=== PATIENT | female | born 1995 | race Caucasian/White ===

== ENCOUNTER 2018-03-11 16:16 | Emergency (ER) | payer MEDICAID ==
[~2018-03-11] VITALS: Ht 162.6 cm; Wt 123.5 kg
[2018-03-11 16:23] VITALS: BP 151/81; PULSE 97; RESP 18; TEMP 98.7; O2SAT 98
[2018-03-11] MEDS ORDERED: PERM5CRE11 TOPICAL (17:13)
--- NOTE | 2018-03-11 17:13 | PD ---
HPI Chief Complaint: Skin Problem Time Seen by Provider: 17:01 Travel History International Travel<30 days: No Contact w/Intl Traveler<30days: No Traveled to known affect area: No History of Present Illness HPI 22-year-old female presents to the emergency department with complaint of a generalized itchy rash that started on her leg and spread all over since February 27. Denies fever, vomiting. Denies chest pain, shortness of breath. Denies airway edema. Denies new exposures to lotions, soaps, detergents, perfumes, medications, foods, environmental exposures. No one else with similar symptoms. Has tried taking Benadryl with no relief of symptoms. Symptoms are mild to moderate in severity. No known aggravating or relieving factors. No primary care provider. Allergies to sulfa. History of hypertension. Has no other medical complaints. No other modifying factors or associated signs and symptoms. PFSH Past Medical History ?: Not LMP: N/A (IUD) Social History Tobacco Use: No Allergies-Medications Reported Meds & Prescriptions Reported Meds & Active Scripts Active Elimite Topical (Permethrin) 5% Cream 1 Applic TOPICAL ONCE Review of Systems Except as stated in HPI: all other systems reviewed are Neg Physical Exam Narrative GENERAL: Well-nourished, well-developed femur patient, in no acute distress SKIN: Warm and dry. Generalized erythremic pimple-like rash to chest, abdomen, back, bilateral upper extremity, bilateral lower extremities; some areas appear excoriated. No areas with cellulitic process noted. HEAD: Atraumatic. Normocephalic. EYES: Pupils equal and round. No scleral icterus. No injection or drainage. ENT: Mucosa pink and moist. Airway patent. NECK: Trachea midline. CARDIOVASCULAR: Regular rate. RESPIRATORY: No accessory muscle use. Breath sounds clear and equal bilaterally. No retractions or tachypnea. GASTROINTESTINAL: obese. MUSCULOSKELETAL: No obvious deformities. No clubbing. No cyanosis. No edema. NEUROLOGICAL: Awake and alert. Oriented 3. No obvious cranial nerve deficits. Motor grossly within normal limits. Normal speech. PSYCHIATRIC: Appropriate mood and affect; insight and judgment normal. Data Data Last Documented VS Vital Signs Date Time Temp Pulse Resp B/P (MAP) Pulse Ox O2 Delivery O2 Flow Rate FiO2 03/11/18 16:23 98.7 97 18 151/81 (104) 98 Orders Orders Ed Discharge Order (03/11/18 17:13) [facility] Medical Decision Making Medical Screen Exam Complete: Yes Emergency Medical Condition: Yes Medical Record Reviewed: Yes Differential Diagnosis Scabies, contact dermatitis, nonspecific rash Narrative Course 22-year-old female with a generalized itchy rash that seems to be consistent with scabies rash. Patient is afebrile and nontoxic-appearing. Denies fever, vomiting. Elimite cream prescribed for home. Instructed patient to follow up with primary care provider. Patient verbalizes understanding and agreement with treatment plan. Patient is medically cleared and stable for discharge. Discussed reasons to return to the emergency department. Patient agrees with treatment plan. The patients vital signs are stable and the patient is stable for outpatient follow-up and treatment. Patient discharged home, stable and in no acute distress. Diagnosis Primary Impression: Rash and nonspecific skin eruption Referrals: [facility] Primary Care Physician Patient Instructions: Acute Rash (ED), General Instructions, Scabies (ED) Additional Instructions: Elimite cream as directed; repeat in one week as needed Soaking in cool water or apply cool, wet washcloths to irritated areas to minimize itching Apply anti-itch creams, such as calamine lotion, to relieve pain and itching as needed [id number] antihistamines as needed and as directed to relieve allergic symptoms caused by scabies Wash all pillows, linens, blankets, etc. in hot water and dry in hot dryer Bag and all unwashable linens, Distant stuffed animals, etc. in a tightly sealed garbage bag for up to 2 weeks Follow-up with military logistics specialist Follow-up with primary care provider Return to the emergency department immediately with worsening of symptoms Med/Other Pt SpecificInfo: Prescription(s) given Scripts Permethrin Topical (Elimite Topical) 5% Cream 1 APPLIC TOPICAL ONCE for Scabies, #1 TUBE 0 Refills Prov: Ilana Bonds 03/11/18 Disposition: 01 DISCHARGE HOME Condition: Stable Ilana Bonds March 11, 2018 17:13
== END 2018-03-11 18:03 | disposition home or self-care (01) ==
LOC: NEPD 16:16
DX: R21 Rash and other nonspecific skin eruption (principal); L29.9 Pruritus, unspecified; I10 Essential (primary) hypertension
CPT/HCPCS: 99283

== ENCOUNTER 2018-03-17 16:44 | Inpatient (IN) | payer MEDICAID ==
[~2018-03-17 16:44] MED LIST: PERM5CRE11 TOPICAL
[2018-03-17 16:45] VITALS: BP 178/87; PULSE 140; RESP 20; TEMP 97.8; O2SAT 96
[2018-03-17] MEDS ORDERED: SODIUM CHLOR 0.9% 1000 ML INJ 1,000 ML IV SCH (16:58)
[2018-03-17] MEDS ORDERED: SODIUM CHLORIDE 0.9% FLUSH 10 ML FLUSH IV FLUSH PRN ×2 (17:00→19:15)
[2018-03-17] MEDS ORDERED: EPINEPHrine HCL (1:1000) 1 MG/ML VIAL IM ONE ×2 (17:00→17:30)
[2018-03-17] MEDS ORDERED: diphenhydrAMINE HCL 50 MG/ML VIAL IM ONE (17:00)
[2018-03-17] MEDS ORDERED: methylPREDNISolone SOD SUCC 125 MG/2 ML VIAL IM ONE (17:00)
--- NOTE | 2018-03-17 17:05 | PD ---
HPI Chief Complaint: Allergic/Adverse Reaction Time Seen by Provider: 16:52 Travel History International Travel<30 days: No Contact w/Intl Traveler<30days: No Traveled to known affect area: No History of Present Illness HPI 22-year-old female presents emergency department for evaluation of diffuse rash that started approximately 10 AM this morning. Says about 330 this afternoon while at work, the rash increased in size, distribution, and intensity so she decided to come to the emergency department for evaluation. She says initially the rash started on the face but has since spread diffusely across the face, neck, trunk, arms, legs. Says that the rash is profusely pruritic but denies pain. 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 She denies any known exposures, bites, stings, new medications or otherwise. She has no history of allergic reactions previously. She denies chronic medical issues medication use. She denies shortness of breath although she is very anxious. Denies nausea, vomiting or diarrhea. [facility] Social History Alcohol Use: No Tobacco Use: No Substance Use: No Allergies-Medications (Allergen,Severity, Reaction): Coded Allergies: Sulfa (Sulfonamide Antibiotics) (Verified Allergy, Severe, 03/11/18) Reported Meds & Prescriptions Reported Meds & Active Scripts Active No Active Prescriptions or Reported Medications Review of Systems Except as stated in HPI: all other systems reviewed are Neg Physical Exam Narrative GENERAL: Well developed, well-nourished in moderate distress, very anxious SKIN: Focused skin assessment warm/dry. Diffuse erythema, raise papules measuring approximately 2-5mm round, becoming confluent over the face, neck, chest, arms. Legs with scattered papules without confluence. HEAD: Atraumatic. Normocephalic. EYES: Pupils equal and round. No scleral icterus. No injection or drainage. ENT: No nasal bleeding or discharge. Mucous membranes pink and moist. Bilateral ears- edema of canals but TMs clearly visualized. Throat clear without edema, airway patent NECK: Trachea midline. No JVD. No lymphadenopathy. No induration, no meningismus CARDIOVASCULAR: Regular rate and rhythm. No murmur appreciated. RESPIRATORY: No accessory muscle use. Clear to auscultation. Breath sounds equal bilaterally. No wheezes, rales or rhonchi MUSCULOSKELETAL: No obvious deformities. No clubbing. No cyanosis. No edema. NEUROLOGICAL: Awake and alert. No obvious cranial nerve deficits. Motor grossly within normal limits. Normal speech. PSYCHIATRIC: Appropriate mood and affect; insight and judgment normal. Data Data Last Documented VS Vital Signs Date Time Temp Pulse Resp B/P (MAP) Pulse Ox O2 Delivery O2 Flow Rate FiO2 03/17/18 17:51 138 118/55 03/17/18 16:45 97.8 20 96 Orders Orders Ecg Monitoring (03/17/18 16:58) Iv Access Insert/Monitor (03/17/18 16:58) Oximetry (03/17/18 16:58) Diphenhydramine Inj (Benadryl Inj) (03/17/18 17:00) Methylprednisolone So Succ Inj (Solumedr (03/17/18 17:00) Sodium Chlor 0.9% 1000 Ml Inj (Ns 1000 M (03/17/18 16:58) Sodium Chloride 0.9% Flush (Ns Flush) (03/17/18 17:00) Epinephrine (1:1000) Inj (Adrenalin (1:1 (03/17/18 17:00) Diphenhydramine Inj (Benadryl Inj) (03/17/18 17:15) Methylprednisolone So Succ Inj (Solumedr (03/17/18 17:15) Albuterol Neb (Albuterol Neb) (03/17/18 17:30) Complete Blood Count With Diff (03/17/18 17:30) Comprehensive Metabolic Panel (03/17/18 17:30) Famotidine Inj (Pepcid Inj) (03/17/18 17:30) Epinephrine (1:1000) Inj (Adrenalin (1:1 (03/17/18 17:30) Electrocardiogram (03/17/18 ) Ondansetron Odt (Zofran Odt) (03/17/18 18:00) Beta Hcg (Quant/Titer) (03/17/18 17:55) Admit Order (Ed Use Only) (03/17/18 18:33) Labs Laboratory Tests Test 03/17/18 17:55 White Blood Count 8.6 TH/MM3 Red Blood Count 5.29 MIL/MM3 Hemoglobin 14.7 GM/DL Hematocrit 43.1 % Mean Corpuscular Volume 81.5 FL Mean Corpuscular Hemoglobin 27.8 PG Mean Corpuscular Hemoglobin Concent 34.1 % Red Cell Distribution Width 13.6 % Platelet Count 500 TH/MM3 Mean Platelet Volume 8.0 FL Neutrophils (%) (Auto) 72.5 % Lymphocytes (%) (Auto) 20.9 % Monocytes (%) (Auto) 5.9 % Eosinophils (%) (Auto) 0.5 % Basophils (%) (Auto) 0.2 % Neutrophils # (Auto) 6.2 TH/MM3 Lymphocytes # (Auto) 1.8 TH/MM3 Monocytes # (Auto) 0.5 TH/MM3 Eosinophils # (Auto) 0.0 TH/MM3 Basophils # (Auto) 0.0 TH/MM3 CBC Comment DIFF FINAL Differential Comment Blood Urea Nitrogen 12 MG/DL Creatinine 1.02 MG/DL Random Glucose 123 MG/DL Total Protein 7.7 GM/DL Albumin 3.8 GM/DL Calcium Level 9.2 MG/DL Alkaline Phosphatase 81 U/L Aspartate Amino Transf (AST/SGOT) 22 U/L Alanine Aminotransferase (ALT/SGPT) 39 U/L Total Bilirubin 0.4 MG/DL Sodium Level 140 MEQ/L Potassium Level 3.6 MEQ/L Chloride Level 103 MEQ/L Carbon Dioxide Level 22.3 MEQ/L Anion Gap 15 MEQ/L Estimat Glomerular Filtration Rate 68 ML/MIN Human Chorionic Gonadotropin, Quant LESS THAN 1 MIU/ML MDM Medical Decision Making Medical Screen Exam Complete: Yes Emergency Medical Condition: Yes Differential Diagnosis Allergic reaction, anaphylaxis, contact dermatitis Narrative Course 22-year-old female presents emergency department for evaluation of possible allergic reaction that started approximate 10 AM this morning. Says she went to work today about 330 and the rash worsened. Says that she has an allergy to gluten and tunafish however, she denies any consumption or exposures to these. She denies any exposures actually. Denies new medications, contacts or otherwise. She has no history of anaphylaxis or allergic reactions similar to this episode. She denies chronic medical issues or medication use. Says that she does have a history of preeclampsia but has no subsequent issues as a result. Initial vital signs show heart rate 140, blood pressure 178/87. The exam findings were concerning for developing anaphylaxis as her face and eyes were edematous. Her airway was patent at initial evaluation. Continue to be patent however, did notice some edema of the pharynx. Solu-Medrol 125 mg, Benadryl 50 mg, Pepcid, a total of 0.6 mg epi administered. Albuterol 2 administered with improvement in patient comfort and heart rate. In addition, it appears after the admission of albuterol she is less anxious and less erythematous. The lesion seem to be resolving on the face. Dr. Gan, my attending also evaluated the patient and determined she required ICU admission for airway monitoring. Patient will be admitted to Dr. Naik. Diagnosis Primary Impression: Allergic reaction Qualified Codes: T78.40XA - Allergy, unspecified, initial encounter Referrals: Primary Care Physician Scripts No Active Prescriptions or Reported Meds Condition: Stable Victoria Greenfield March 17, 2018 17:05
[2018-03-17] MEDS ORDERED: methylPREDNISolone SOD SUCC 125 MG/2 ML VIAL IV PUSH ONE (17:15)
[2018-03-17] MEDS ORDERED: diphenhydrAMINE HCL 50 MG/ML VIAL IV PUSH ONE (17:15)
[2018-03-17] MEDS ORDERED: FAMOTIDINE 20 MG/2 ML VIAL IV PUSH ONE (17:30)
[2018-03-17] MEDS: RESP: ALBUTEROL 2.5 MG/3 ML NEB (SCH) INH (17:41)
[2018-03-17] MEDS ORDERED: ONDANSETRON ODT 4 MG TAB PO ONE (18:00)
[2018-03-17 18:01] LABS: AUTOMATED NEUTROPHIL # 6.2 TH/MM3 (1.8-7.7); BASOPHIL % 0.2 % (0.0-2.0); EOSINOPHIL % 0.5 % (0.0-4.0); HEMATOCRIT 43.1 % (35.0-46.0); HEMOGLOBIN 14.7 GM/DL (11.6-15.3); LYMPH % 20.9 % (9.0-44.0); LYMPHOCYTE # 1.8 TH/MM3 (1.0-4.8); MEAN CELL VOLUME 81.5 FL (80.0-100.0); MEAN CORPUSCULAR HEMOGLOBIN 27.8 PG (27.0-34.0); MEAN CORPUSCULAR HGB CONC 34.1 % (32.0-36.0); MONO % 5.9 % (0.0-8.0); MONOCYTE # 0.5 TH/MM3 (0-0.9); NEUT % 72.5 % (16.0-70.0); PLATELET COUNT 500 TH/MM3 (150-450); RED BLOOD COUNT 5.29 MIL/MM3 (4.00-5.30); RED CELL DISTRIBUTION WIDTH 13.6 % (11.6-17.2); WHITE BLOOD COUNT 8.6 TH/MM3 (4.0-11.0)
[2018-03-17 18:27] LABS: ALBUMIN 3.8 GM/DL (3.4-5.0); AST (GOT) 22 U/L (15-37); BICARBONATE 22.3 MEQ/L (21.0-32.0); BLOOD UREA NITROGEN 12 MG/DL (7-18); CALCIUM 9.2 MG/DL (8.5-10.1); CHLORIDE 103 MEQ/L (98-107); CREATININE 1.02 MG/DL (0.50-1.00); GLOMERULAR FILTRATION RATE 68 ML/MIN (>89); GLUCOSE,RANDOM 123 MG/DL (74-106); SODIUM (NA) 140 MEQ/L (136-145)
[2018-03-17 18:29] LABS: ALT (GPT) 39 U/L (10-53)
[2018-03-17 18:39] LABS: ALKALINE PHOSPHATASE 81 U/L (45-117); TOTAL BILIRUBIN ADULT 0.4 MG/DL (0.2-1.0); TOTAL PROTEIN 7.7 GM/DL (6.4-8.2)
--- NOTE | 2018-03-17 18:55 | PD ---
Data Data Last Documented VS Vital Signs Date Time Temp Pulse Resp B/P (MAP) Pulse Ox O2 Delivery O2 Flow Rate FiO2 03/17/18 17:51 138 118/55 03/17/18 16:45 97.8 20 96 Orders Orders Ecg Monitoring (03/17/18 16:58) Iv Access Insert/Monitor (03/17/18 16:58) Oximetry (03/17/18 16:58) Diphenhydramine Inj (Benadryl Inj) (03/17/18 17:00) Methylprednisolone So Succ Inj (Solumedr (03/17/18 17:00) Sodium Chlor 0.9% 1000 Ml Inj (Ns 1000 M (03/17/18 16:58) Sodium Chloride 0.9% Flush (Ns Flush) (03/17/18 17:00) Epinephrine (1:1000) Inj (Adrenalin (1:1 (03/17/18 17:00) Diphenhydramine Inj (Benadryl Inj) (03/17/18 17:15) Methylprednisolone So Succ Inj (Solumedr (03/17/18 17:15) Albuterol Neb (Albuterol Neb) (03/17/18 17:30) Complete Blood Count With Diff (03/17/18 17:30) Comprehensive Metabolic Panel (03/17/18 17:30) Famotidine Inj (Pepcid Inj) (03/17/18 17:30) Epinephrine (1:1000) Inj (Adrenalin (1:1 (03/17/18 17:30) Electrocardiogram (03/17/18 ) Ondansetron Odt (Zofran Odt) (03/17/18 18:00) Beta Hcg (Quant/Titer) (03/17/18 17:55) Admit Order (Ed Use Only) (03/17/18 18:33) Labs Laboratory Tests Test 03/17/18 17:55 White Blood Count 8.6 TH/MM3 Red Blood Count 5.29 MIL/MM3 Hemoglobin 14.7 GM/DL Hematocrit 43.1 % Mean Corpuscular Volume 81.5 FL Mean Corpuscular Hemoglobin 27.8 PG Mean Corpuscular Hemoglobin Concent 34.1 % Red Cell Distribution Width 13.6 % Platelet Count 500 TH/MM3 Mean Platelet Volume 8.0 FL Neutrophils (%) (Auto) 72.5 % Lymphocytes (%) (Auto) 20.9 % Monocytes (%) (Auto) 5.9 % Eosinophils (%) (Auto) 0.5 % Basophils (%) (Auto) 0.2 % Neutrophils # (Auto) 6.2 TH/MM3 Lymphocytes # (Auto) 1.8 TH/MM3 Monocytes # (Auto) 0.5 TH/MM3 Eosinophils # (Auto) 0.0 TH/MM3 Basophils # (Auto) 0.0 TH/MM3 CBC Comment DIFF FINAL Differential Comment Blood Urea Nitrogen 12 MG/DL Creatinine 1.02 MG/DL Random Glucose 123 MG/DL Total Protein 7.7 GM/DL Albumin 3.8 GM/DL Calcium Level 9.2 MG/DL Alkaline Phosphatase 81 U/L Aspartate Amino Transf (AST/SGOT) 22 U/L Alanine Aminotransferase (ALT/SGPT) 39 U/L Total Bilirubin 0.4 MG/DL Sodium Level 140 MEQ/L Potassium Level 3.6 MEQ/L Chloride Level 103 MEQ/L Carbon Dioxide Level 22.3 MEQ/L Anion Gap 15 MEQ/L Estimat Glomerular Filtration Rate 68 ML/MIN Human Chorionic Gonadotropin, Quant LESS THAN 1 MIU/ML MDM Supervised Visit with TOMÁS: Yes Narrative Course SERGIO Kessler asked me to evaluate this patient. She was quite concerned about her allergic reaction. This patient turns out to be critically ill. Aggregate critical care time was 35 minutes. Time to perform other separately billable procedures was not included in the critical care time. My time did not include minutes spent treating any other patients simultaneously or on activities that did not directly contribute to the patient's treatment. The services I provided to this patient were to treat and/or prevent clinically significant deterioration that could result in: Cardiopulmonary arrest, loss of airway, respiratory failure I provided critical care services requiring my management, as noted below: Chart data review, documentation time, medication orders and management, vital sign assessments/reviewing monitor data, ordering and reviewing lab tests, ordering and interpreting/reviewing x-rays and diagnostic studies, care of the patient and discussion of the patient with the admitting physicians. Patient has severe allergic reaction. She basically has pitting edema from the clavicle up. Even her forehead is pitting edema. She has submental edema her tongue is thick. There is definite concern for airway loss 2 IVs placed and she received IV Benadryl and IV Solu-Medrol and IV H2 mandy and 2 doses of IM epinephrine She received a nebulizer treatment I have done multiple rechecks and had a lot of bedside time with this patient After all the above is done I do see some improvement. I do not feel she needs emergent intubation. However she still has a lot of airway area edema I spoke with Dr. Naik who will admit her to intensive care. He did come down and evaluate the patient Diagnosis Primary Impression: Severe allergic reaction Qualified Codes: T78.40XA - Allergy, unspecified, initial encounter Admitting Information Admitting Physician Requests: Admit Referrals: Primary Care Physician Condition: Stable Rajiv Gan MD March 17, 2018 18:55
[2018-03-17 19:12] VITALS: BP 132/73; PULSE 103; RESP 15; O2SAT 100
[2018-03-17] MEDS ORDERED: ONDANSETRON ODT 4 MG TAB PO PRN (19:15)
[2018-03-17] MEDS ORDERED: CHLORHEXIDINE GLUCONATE 2 % 1 PACK (2 CLOTHS) TOP PRN (19:15)
[2018-03-17] MEDS ORDERED: SENNOSIDES 8.6 MG TAB PO PRN (19:15)
[2018-03-17] MEDS ORDERED: ACETAMINOPHEN 325 MG TAB PO PRN (19:15)
[2018-03-17] MEDS ORDERED: BISACODYL 10 MG SUPP RECTAL PRN (19:15)
[2018-03-17] MEDS ORDERED: RESP: ALBUTEROL 2.5 MG/IPRATROPIUM 0.5 MG NEB (PRN) INH (19:15)
[2018-03-17] MEDS ORDERED: NURSING INFORMATION XX SCH (19:15)
[2018-03-17] MEDS ORDERED: MAGNESIUM HYDROXIDE SUSP 30 ML CUP PO PRN (19:15)
[2018-03-17] MEDS ORDERED: LACTULOSE SYRUP 20 GM/30 ML CUP PO PRN (19:15)
--- NOTE | 2018-03-17 19:17 | HHI.HP ---
[facility] Service Critical Care Medicine Primary Care Physician No Primary Care Physician Admission Diagnosis severe allergic rxn, facial and submental edema Diagnosis: Travel History International Travel<30 Days: No Contact w/Intl Traveler <30 Da: No Traveled to Known Affected Are: No History of Present Illness 22-year-old female presents emergency department for evaluation of diffuse rash that started approximately 10 AM this morning. Says about 330 this afternoon the rash increased in size and intensity so she decided to come to the emergency department for evaluation. She denies any known exposures, bites, stings, new medications or otherwise. She has no history of severe allergic reactions previously. She denies chronic medical issues medication use. She denies shortness of breath although she is very anxious. Denies nausea, vomiting or diarrhea. She has been admitted to ICU for an airway management Review of Systems Constitutional: DENIES: Diaphoretic episodes, Fatigue, Fever, Weight gain, Weight loss, Chills, Dizziness, Change in appetite, Night Sweats Endocrine: DENIES: Abnorml menstrual pattern, Heat/cold intolerance, Polydipsia , Polyuria, Polyphagia Eyes: DENIES: Blurred vision, Diplopia, Eye inflammation, Eye pain, Vision loss , Photosensitivity, Double Vision Ears, nose, mouth, throat: DENIES: Tinnitus, Hearing loss, Vertigo, Nasal discharge, Oral lesions, Throat pain, Hoarseness, Ear Pain, Running Nose, Epistaxis, Sinus Pain, Toothache, Odynophagia Respiratory: DENIES: Apneas, Cough, Snoring, Wheezing, Hemoptysis, Sputum production, Shortness of breath Cardiovascular: DENIES: Chest pain, Palpitations, Syncope, Dyspnea on Exertion , PND, Lower Extremity Edema, Orthopnea, Claudication Gastrointestinal: DENIES: Abdominal pain, Black stools, Bloody stools, Constipation, Diarrhea, Nausea, Vomiting, Difficulty Swallowing, Anorexia Genitourinary: DENIES: Abnormal vaginal bleeding, Dysmenorrhea, Dyspareunia, Sexual dysfunction, Urinary frequency, Urinary incontinence, Urgency, Hematuria , Dysuria, Nocturia, Vaginal discharge Musculoskeletal: DENIES: Joint pain, Muscle aches, Stiffness, Joint Swelling, Back pain, Neck pain Integumentary: COMPLAINS OF: Pruritus, Rash, DENIES: Abnormal pigmentation, Nail changes, Breast masses, Breast skin changes, Nipple discharge Hematologic/lymphatic: DENIES: Bruising, Lymphadenopathy Immunologic/allergic: DENIES: Eczema, Urticaria Neurologic: DENIES: Abnormal gait, Headache, Localized weakness, Paresthesias, Seizures, Speech Problems, Tremor, Poor Balance Psychiatric: COMPLAINS OF: Anxiety, DENIES: Confusion, Mood changes, Depression , Hallucinations, Agitation, Suicidal Ideation, Homicidal Ideation, Delusions Past Family Social History Allergies: Coded Allergies: Sulfa (Sulfonamide Antibiotics) (Verified Allergy, Severe, 03/11/18) Past Medical History No past medical history Past Surgical History No prior surgeries Reported Medications Reported Meds & Active Scripts Active No Active Prescriptions or Reported Medications Active Ordered Medications Current Medications Medications (Trade) Dose Ordered Sig/Fabian Route PRN Reason Start Time Stop Time Status Last Admin Dose Admin Sodium Chloride (NS Flush) 2 ml UNSCH PRN IV FLUSH FLUSH AFTER USING IV ACCESS 03/17/18 17:00 Sodium Chloride 1,000 ml @ 84 mls/hr [id number] IV 03/17/18 19:13 03/17/18 19:43 Sodium Chloride (NS Flush) 2 ml UNSCH PRN IV FLUSH FLUSH AFTER USING IV ACCESS 03/17/18 19:15 Sodium Chloride (NS Flush) 2 ml BID IV FLUSH 03/17/18 21:00 Acetaminophen (Tylenol) 650 mg Q6H PRN PO PAIN 1-10 AND/OR FEVER >101F 03/17/18 19:15 Famotidine (Pepcid Inj) 20 mg Q12HR IV PUSH 03/17/18 21:00 Ondansetron HCl (Zofran Odt) 4 mg Q6H PRN PO NAUSEA OR VOMITING 03/17/18 19:15 Albuterol/ Ipratropium (Duoneb Neb) 1 ampule Q6HR NEB INH 03/17/18 22:00 Albuterol/ Ipratropium (Duoneb Neb) 1 ampule Q2HR NEB PRN INH WHEEZING 03/17/18 19:15 Enoxaparin Sodium (Lovenox Inj) 40 mg Q24H SQ 03/17/18 20:00 Miscellaneous Information ([facility] Nursing Information) 1 [id number] XX 03/17/18 19:15 Chlorhexidine Gluconate (Chlorhexidine 2% Cloth) 3 pack Taper DAILY@04 TOP 03/18/18 04:00 03/14/19 03:59 Chlorhexidine Gluconate (Chlorhexidine 2% Cloth) 3 pack UNSCH PRN TOP HYGIENIC CARE 03/17/18 19:15 Senna/Docusate Sodium (Tonie-Colace) 1 tab BID PO 03/17/18 21:00 Magnesium Hydroxide (Milk Of Magnesia Liq) 30 ml Q12H PRN PO Mild constipation 03/17/18 19:15 Sennosides (Senokot) 17.2 mg Q12H PRN PO Moderate constipation 03/17/18 19:15 Bisacodyl (Dulcolax Supp) 10 mg DAILY PRN RECTAL SEVERE CONSITIPATION 03/17/18 19:15 Lactulose (Lactulose Liq) 30 ml DAILY PRN PO SEVERE CONSITIPATION 03/17/18 19:15 Dexamethasone Sodium Phosphate (Decadron Inj) 4 mg Q6HR IV PUSH 03/17/18 19:15 03/18/18 12:01 03/17/18 19:44 Diphenhydramine HCl (Benadryl Inj) 25 mg Q4HR IM 03/17/18 20:00 03/18/18 16:01 03/17/18 19:45 Family History No family history significant for the coronary artery disease Social History Negative for tobacco, alcohol, or illicit drug abuse. Her mother is active smoker so the patient is exposed to secondhand smoking. Physical Exam Vital Signs Vital Signs Date Time Temp Pulse Resp B/P (MAP) Pulse Ox O2 Delivery O2 Flow Rate FiO2 03/17/18 19:12 103 15 100 Nasal Cannula 2.00 03/17/18 17:51 138 118/55 03/17/18 17:27 123 128/56 03/17/18 16:45 97.8 140 20 178/87 (117) 96 Physical Exam GENERAL: Morbidly obese young female in no obvious distress. SKIN: Warm and dry. The previously mentioned the rash has resolved. HEAD: Normocephalic. EYES: No scleral icterus. No injection or drainage. NECK: Supple, trachea midline. No JVD or lymphadenopathy. CARDIOVASCULAR: Regular rate and rhythm without murmurs, gallops, or rubs. RESPIRATORY: Breath sounds equal bilaterally. No accessory muscle use. GASTROINTESTINAL: Abdomen soft, non-tender, nondistended. MUSCULOSKELETAL: No cyanosis, or edema. BACK: Nontender without obvious deformity. NEURO EXAM: GCS: 15 Mental Status: The patient is alert and oriented to person, place, and time with normal speech. Cranial Nerves: Visual acuity intact bilaterally. Visual steel normal in all quadrants. Pupils are round, reactive to light. Extraocular movements are intact without ptosis. Hearing is normal bilaterally. Voice is normal. Tongue protrudes midline and moves symmetrically. Reflexes: Biceps, patellar, and Achilles are 2/4 bilaterally. No clonus. Sensation: Sensation is intact bilaterally to pain and light touch. Two-point discrimination is intact. Motor: Good muscle tone. Strength is 5/5 bilaterally. Cerebellar: [id number] and [id number] test normal bilaterally. Laboratory Laboratory Tests Test 03/17/18 17:55 White Blood Count 8.6 Red Blood Count 5.29 Hemoglobin 14.7 Hematocrit 43.1 Mean Corpuscular Volume 81.5 Mean Corpuscular Hemoglobin 27.8 Mean Corpuscular Hemoglobin Concent 34.1 Red Cell Distribution Width 13.6 Platelet Count 500 Mean Platelet Volume 8.0 Neutrophils (%) (Auto) 72.5 Lymphocytes (%) (Auto) 20.9 Monocytes (%) (Auto) 5.9 Eosinophils (%) (Auto) 0.5 Basophils (%) (Auto) 0.2 Neutrophils # (Auto) 6.2 Lymphocytes # (Auto) 1.8 Monocytes # (Auto) 0.5 Eosinophils # (Auto) 0.0 Basophils # (Auto) 0.0 CBC Comment DIFF FINAL Differential Comment Blood Urea Nitrogen 12 Creatinine 1.02 Random Glucose 123 Total Protein 7.7 Albumin 3.8 Calcium Level 9.2 Alkaline Phosphatase 81 Aspartate Amino Transf (AST/SGOT) 22 Alanine Aminotransferase (ALT/SGPT) 39 Total Bilirubin 0.4 Sodium Level 140 Potassium Level 3.6 Chloride Level 103 Carbon Dioxide Level 22.3 Anion Gap 15 Estimat Glomerular Filtration Rate 68 Human Chorionic Gonadotropin, Quant LESS THAN 1 Result Diagram: 03/17/18 17503/17/18 175 Caprini VTE Risk Assessment Caprini VTE Risk Assessment: Mod/High Risk (score >= 2) Caprini Risk Assessment Model Point Value = 1 Point Value = 2 Point Value = 3 Point Value = 5 Age 41-60 Minor surgery BMI > 25 kg/m2 Swollen legs Varicose veins or History of unexplained or recurrent spontaneous Oral contraceptives or hormone replacement Sepsis (< 1 month) Serious lung disease, including pneumonia (< 1 month) Abnormal pulmonary function Acute myocardial infarction Congestive heart failure (< 1 month) History of inflammatory bowel disease Medical patient at bed rest Age 61-74 Arthroscopic surgery Major open surgery (> 45 min) Laparoscopic surgery (> 45 min) Malignancy Confined to bed (> 72 hours) Immobilizing plaster cast Central venous access Age >= 75 History of VTE Family history of VTE Factor V Leiden Prothrombin [id number] Lupus anticoagulant Anticardiolipin antibodies Elevated serum homocysteine Heparin-induced thrombocytopenia Other congenital or acquired thrombophilia Stroke (< 1 month) Elective arthroplasty Hip, pelvis, or leg fracture Acute spinal cord injury (< 1 month) Prophylaxis Regimen Total Risk Factor Score Risk Level Prophylaxis Regimen 0-1 Low Early ambulation 2 Moderate Order ONE of the following: *Sequential Compression Device (SCD) *Heparin 5000 units SQ BID 3-4 Higher Order ONE of the following medications: *Heparin 5000 units SQ TID *Enoxaparin/Lovenox 40 mg SQ daily (WT < 150 kg, CrCl > 30 mL/min) *Enoxaparin/Lovenox 30 mg SQ daily (WT < 150 kg, CrCl > 10-29 mL/min) *Enoxaparin/Lovenox 30 mg SQ BID (WT < 150 kg, CrCl > 30 mL/min) AND/OR *Sequential Compression Device (SCD) 5 or more Highest Order ONE of the following medications: *Heparin 5000 units SQ TID (Preferred with Epidurals) *Enoxaparin/Lovenox 40 mg SQ daily (WT < 150 kg, CrCl > 30 mL/min) *Enoxaparin/Lovenox 30 mg SQ daily (WT < 150 kg, CrCl > 10-29 mL/min) *Enoxaparin/Lovenox 30 mg SQ BID (WT < 150 kg, CrCl > 30 mL/min) AND *Sequential Compression Device (SCD) Assessment and Plan Assessment and Plan Cutaneous rash -IV steroids -Benadryl, Pepcid -Monitor in the ICU for airway compromise -Supportive care Anxiety -Alprazolam as needed DVT GI prophylaxis -Rj's and SCDs -Early aggressive mobilization -Pepcid Critical Care: The total critical care time was 35 minutes. Time to perform other separately billable procedures was not included in the critical care time. Satish Naik MD March 17, 2018 7:17 pm
[2018-03-17] MEDS: SODIUM CHLOR 0.9% 1000 ML INJ 1,000 ML IV SCH (19:43)
[2018-03-17] MEDS: DEXAMETHASONE SOD PHOS 4 MG/ML VIAL IV PUSH SCH (19:44)
[2018-03-17] MEDS: diphenhydrAMINE HCL 50 MG/ML VIAL IM SCH (19:45)
[2018-03-17 20:00] VITALS: BP_SYST 111; BP_SYST 144; BP_DIAS 62; BP_DIAS 78; PULSE 91; RESP 19; RESP 22; TEMP 98.1; TEMP 98.7; O2SAT 100
[2018-03-17] MEDS ORDERED: ENOXAPARIN SODIUM 40 MG/0.4 ML SYRINGE SQ SCH (20:00)
[2018-03-17 21:12] VITALS: O2SAT 100
[2018-03-17] MEDS: RESP: ALBUTEROL 2.5 MG/IPRATROPIUM 0.5 MG NEB (SCH) INH (21:12)
[2018-03-17] MEDS: FAMOTIDINE 20 MG/2 ML VIAL IV PUSH SCH (21:53)
[2018-03-17] MEDS: SODIUM CHLORIDE 0.9% FLUSH 10 ML FLUSH IV FLUSH SCH (21:53)
[2018-03-17] MEDS: DOCUSATE SODIUM 50 MG/SENNA 8.6 MG TAB PO SCH (21:54)
[2018-03-17 22:00] VITALS: PULSE 91
[2018-03-18] VITALS (10 sets, daily range): BP systolic 107–137; BP diastolic 55–80; PULSE 70–105; RESP 11–24; TEMP 97.8–98.3; O2SAT 95–100
[2018-03-18] MEDS: diphenhydrAMINE HCL 50 MG/ML VIAL IM SCH ×2 (00:41→04:52)
[2018-03-18] MEDS: DEXAMETHASONE SOD PHOS 4 MG/ML VIAL IV PUSH SCH ×3 (00:41→12:51)
[2018-03-18] MEDS: RESP: ALBUTEROL 2.5 MG/IPRATROPIUM 0.5 MG NEB (SCH) INH ×3 (03:42→15:16)
[2018-03-18] MEDS ORDERED: CHLORHEXIDINE GLUCONATE 2 % 1 PACK (2 CLOTHS) TOP SCH (04:00)
[2018-03-18 04:22] LABS: AUTOMATED NEUTROPHIL # 4.3 TH/MM3 (1.8-7.7); BASOPHIL % 0.2 % (0.0-2.0); EOSINOPHIL % 0.1 % (0.0-4.0); HEMATOCRIT 38.1 % (35.0-46.0); HEMOGLOBIN 13.1 GM/DL (11.6-15.3); LYMPH % 8.9 % (9.0-44.0); LYMPHOCYTE # 0.4 TH/MM3 (1.0-4.8); MEAN CORPUSCULAR HEMOGLOBIN 28.1 PG (27.0-34.0); MEAN CORPUSCULAR HGB CONC 34.3 % (32.0-36.0); MONO % 1.3 % (0.0-8.0); MONOCYTE # 0.1 TH/MM3 (0-0.9); NEUT % 89.5 % (16.0-70.0); PLATELET COUNT 326 TH/MM3 (150-450); RED BLOOD COUNT 4.65 MIL/MM3 (4.00-5.30); RED CELL DISTRIBUTION WIDTH 13.2 % (11.6-17.2); WHITE BLOOD COUNT 4.8 TH/MM3 (4.0-11.0)
[2018-03-18 04:46] LABS: INTERNATIONAL NORMALIZED RATIO 1.1 RATIO; PROTHROMBIN TIME - PATIENT 10.9 SEC (9.8-11.6)
[2018-03-18 04:55] LABS: ALBUMIN 3.3 GM/DL (3.4-5.0); ALKALINE PHOSPHATASE 69 U/L (45-117); ALT (GPT) 36 U/L (10-53); AST (GOT) 20 U/L (15-37); BLOOD UREA NITROGEN 10 MG/DL (7-18); CALCIUM 8.8 MG/DL (8.5-10.1); CHLORIDE 107 MEQ/L (98-107); CREATININE 0.84 MG/DL (0.50-1.00); GLOMERULAR FILTRATION RATE 85 ML/MIN (>89); GLUCOSE,RANDOM 161 MG/DL (74-106); MAGNESIUM 2.2 MG/DL (1.5-2.5); PHOSPHORUS 3.1 MG/DL (2.5-4.9); SODIUM (NA) 140 MEQ/L (136-145); TOTAL BILIRUBIN ADULT 0.6 MG/DL (0.2-1.0); TOTAL PROTEIN 7.2 GM/DL (6.4-8.2)
[2018-03-18] MEDS: SODIUM CHLOR 0.9% 1000 ML INJ 1,000 ML IV SCH ×2 (05:16→08:42)
[2018-03-18] MEDS: FAMOTIDINE 20 MG/2 ML VIAL IV PUSH SCH (09:21)
[2018-03-18] MEDS: SODIUM CHLORIDE 0.9% FLUSH 10 ML FLUSH IV FLUSH SCH (09:21)
[2018-03-18] MEDS: DOCUSATE SODIUM 50 MG/SENNA 8.6 MG TAB PO SCH (09:22)
[2018-03-18] MEDS ORDERED: EPIP0.3I IM (09:51)
--- NOTE | 2018-03-18 10:00 | HHI.PR ---
Subjective Remarks Nursing denies any medical deterioration since last night. Patient reports that the only time she feels short of breath still is when she is just waking up and she does admit being diagnosed with sleep apnea sometime in the past. But she says overall she feels much better since admission. Says that the rash is almost gone. Says that she is quite stressed out and has had increasing panic attacks over the last 1-2 months. Objective Vital Signs Date Time Temp Pulse Resp B/P (MAP) Pulse Ox O2 Delivery O2 Flow Rate FiO2 03/18/18 06:00 70 03/18/18 04:00 97.8 80 17 118/70 (86) 97 03/18/18 04:00 80 03/18/18 02:00 73 03/18/18 00:00 79 03/18/18 00:00 98.0 79 11 125/64 (84) 100 03/17/18 22:00 91 03/17/18 21:12 100 Nasal Cannula 2.00 03/17/18 20:20 03/17/18 20:00 98.1 91 19 111/62 (78) 100 03/17/18 19:12 103 15 132/73 (92) 100 Nasal Cannula 2.00 03/17/18 19:12 103 15 100 Nasal Cannula 2.00 03/17/18 17:51 138 118/55 03/17/18 17:27 123 128/56 03/17/18 16:45 97.8 140 20 178/87 (117) 96 I/O 03/17/18 03/17/18 03/17/18 03/18/18 03/18/18 03/18/18 07:00 15:00 23:00 07:00 15:00 23:00 Intake Total 806 ml Output Total 500 ml Balance 306 ml Intake IV Total 806 ml Output Urine Total 500 ml # Bowel Movements 0 Result Diagram: 03/18/18 0340 03/18/18 0340 Objective Remarks Lying in bed, unlabored breathing, mildly anxious Heart sounds are regular rate rhythm, no murmurs no stridor, no wheezing No stridor, no wheezing, no slurred speech Excoriations over the forehead and over bilateral lower extremities, no obvious hives are evident at this time on upper and lower extremities. A/P Assessment and Plan Angioedema -Much improved since admission -Instructed that she needs to follow-up with an sheet heater helper upon discharge. -We will perform bedside nursing swallow, his past will proceed to full liquid trial being gluten-free since this is what the patient has been on this since 2000 -We will need an epinephrine pen upon discharge, case management has been electronically messaged to ensure coverage for this -Ordering p-ANCA and SHIRA -Stop IM Benadryl, will need to wean off dexamethasone but will transition to oral regimen Addendum: Patient tolerated p.o. intake well. Vital signs remained stable, although she did remain a little bit anxious. Order a one-time dose of Vistaril. We will discharge the patient on Vistaril, a dexamethasone taper, as well as script for epinephrine. Patient has met maximal benefit from authorization and is clinically stable for discharge. Was instructed to follow- up with allergy/immunology upon discharge. Amilcar Loredo MD March 18, 2018 10:00
--- NOTE | 2018-03-18 13:24 | EKG ---
Date Performed: 03/17/2018 Time Performed: 17:55:38 PTAGE: 22 years EKG: SINUS TACHYCARDIA WITH SHORT TX INTERVAL ABNORMAL RHYTHM ECG NO PREVIOUS TRACING DOCTOR: Levi Barrera Interpretating Date/Time 03/18/2018 13:22:50
--- NOTE | 2018-03-18 14:17 | HHI.DCPOC ---
Discharge Care Plan Diagnosis: (1) Allergic reaction (2) Severe allergic reaction (3) Angioedema Goals to Promote Your Health * To prevent worsening of your condition and complications * To maintain your health at the optimal level Directions to Meet Your Goals Take your medications as prescribed Follow your dietary instruction Follow activity as directed Keep your appointments as scheduled Take your immunizations and boosters as scheduled If your symptoms worsen call your PCP, if no PCP go to Urgent Care Center or Emergency Room Smoking is Dangerous to Your Health. Avoid second hand smoke Call the 24-hour hour crisis hotline for domestic abuse at Amilcar Loredo MD March 18, 2018 14:17
[2018-03-18] MEDS ORDERED: DEXA4TAB PO (14:25)
[2018-03-18] MEDS ORDERED: HYDR50CA PO (14:34)
[2018-03-21 14:56] LABS: TRANSGLUTAMINASE IGA AB <1.2 U/mL; TRANSGLUTAMINASE IGG AB <1.2 U/mL
== END 2018-03-18 16:40 | disposition home or self-care (01) | DRG 916 ==
LOC: NEPD 16:44 → NEDA 18:49 → HIMW 20:30
PROVIDERS: ADMIT Hospitalist; ATTEND Hospitalist
DX: T78.3XXA Angioneurotic edema, initial encounter (principal); F41.9 Anxiety disorder, unspecified; F41.0 Panic disorder [episodic paroxysmal anxiety]; G47.30 Sleep apnea, unspecified; Z88.2 Allergy status to sulfonamides
CPT/HCPCS: 80053; 83516; 83735; 84100; 84702; 85025; 85610; 85730; 86021; 86038; 87641; 93005; 94640; 94664; 96361; 96372; 96374; 96375; J0171; J1100; J1200; J1650; J2930; J7030; J7613